=== PATIENT | female | born 1985 | race Asian ===

== ENCOUNTER → 2017-02-18 | Outpatient (CLI) | payer BC ==
[~2017-02-18] MED LIST: NO MEDICATIONS
[2017-02-18 11:00] LABS: ALBUMIN SERUM 3.9 g/dL (3.5-5.0); BILIRUBIN,TOTAL 0.4 mg/dL (0.2-2.0); BUN/CREATININE RATIO 15.71; CALCIUM SERUM 9.1 mg/dL (8.4-10.2); CREATININE SERUM 0.7 mg/dL (0.6-1.4); GLOM FILT RATE Estimated 113.8 mL/min (>60); POTASSIUM 4.3 mmol/L (3.5-5.1); PROTEIN TOTAL SERUM 7.2 g/dL (6.0-8.3)
== END | disposition home or self-care (01) ==
LOC: CAMB 09:00
PROVIDERS: Surgery
DX: Z01.812 Encounter for preprocedural laboratory examination (principal)
CPT/HCPCS: 36415; 80053

== ENCOUNTER → 2017-02-25 | Day surgery (SDC) | payer BC ==
--- NOTE | ~2017-02-25 | OR ---
Unit #: [id number] #: [id number] Patient: ROSLYN SOLIMAN [id number] [address] [place], [place] [address] [id number] O MR#: [id number] NAME: ROSLYN SOLIMAN. ROOM: Date of Procedure: 02/25/2017 Admission Date: 02/25/2017 Surgeon: Luiz Sharp Jr., M.D. : 1985 Attending Physician: Luiz Sharp Jr., M.D. Primary Care Physician: Pari Sánchez M.D. OPERATIVE REPORT INDICATIONS FOR PROCEDURE The patient is a 31-year-old black female, who recently presented to the office complaining of intermittent mid epigastric abdominal pain with associated nausea. She has been worked up and noted to have evidence of cholecystitis with cholelithiasis. It was felt she has been having biliary colic. Preoperative liver function tests are normal. She is brought in this time at her request for laparoscopic cholecystectomy. She understands the procedure including the risks, including that of common duct injury, biliary leak, and bleeding, and intra-abdominal organ injury, and consents. PREOPERATIVE DIAGNOSES Chronic cholecystitis with cholelithiasis. POSTOPERATIVE DIAGNOSES Chronic cholecystitis with cholelithiasis, also noting some adhesions in the right lower quadrant of her abdomen and boggy appearing uterus. ANESTHESIA General with endotracheal intubation and 0.5% Marcaine with epinephrine locally. PROCEDURE PERFORMED Laparoscopic cholecystectomy. DESCRIPTION OF PROCEDURE The patient was positioned in supine position. After being anesthetized and intubated, she was prepped and draped in routine fashion for laparoscopic cholecystectomy. A small supraumbilical incision was made approximately a 1 cm in length. This was carried down to the fascia. The fascia in the umbilicus were lifted with a towel clip, and a Veress needle introduced into the abdomen. The abdomen was then inflated with CO2 gas. A 5-mm port was introduced into the abdomen followed by the camera. There was no evidence of any injury related to introduction of the port of the Veress needle. Brief intra-abdominal exploration was carried out. The patient was noted to have multiple adhesions in the right lower quadrant of the abdomen including bowel loop with colon for some unknown reason. Also, her uterus was slightly enlarged in appearance and boggy. The gallbladder appeared chronically inflamed. Two 5-mm ports were placed laterally and an 11 mm port just to the right of the upper midline. The gallbladder was lifted. Dissection was carried out in the triangle of Calot, cystic duct which was approximately 1 to 2 mm in diameter was Unit #: [id number] #: [id number] Patient: ROSLYN SOLIMAN isolated, hemoclipped x4 and divided 1 cm from its junction with the common duct. Cystic artery was identified, hemoclipped x3, and divided. The gallbladder was then removed from its bed with the hook cautery using a current of 20 and after it was released, it was removed through the upper midline incision along with the grasping clamp and the port. The port was replaced. Subhepatic space checked. There was no evidence of any bleeding at all from the gallbladder bed. The clips on cystic duct and cystic artery were intact with no evidence of any leak or bleeding. The fascia in the larger port site was then approximated using neoClose technique. CO2 was expressed from the abdomen. Ports were removed. There was no evidence of any bleeding from the port sites. The port sites were then injected with 0.5% Marcaine with epinephrine locally and the skin edges on all the wounds were approximated with stainless-steel skin clips and skin stapling device. Sterile dressings were applied externally. Estimated blood loss less than 30 mL. The patient received less than 1000 mL crystalloid solution during the procedure. Sponges and instrument counts were correct x3. No drains used. No complications. The patient was taken to the recovery room with stable vital signs in satisfactory condition. Dictated by... Luiz Sharp Jr., M.D. JMB/laila TD: 02/25/2017 12:06 JOB #: [id number] OPERATIVE REPORT Page 1 of 1 X Luiz Sharp MD X PROCEDURE OPERATIVE NOTE
== END | disposition home or self-care (01) ==
LOC: CSUR 07:19
DX: K81.1 Chronic cholecystitis (principal); J30.2 Other seasonal allergic rhinitis; Z79.899 Other long term (current) drug therapy; Z87.891 Personal history of nicotine dependence
CPT/HCPCS: 84703; 88304; J0330; J0690; J1650; J1885; J2250; J2270; J2405; J2710; J2765